=== PATIENT | male | born 1955 | race Caucasian/White ===

== ENCOUNTER 2017-11-29 12:51 | Observation (INO) | payer MEDICAID ==
[~2017-11-29] VITALS: Ht 180.3 cm; Wt 179.8 kg
[2017-11-29 09:15] VITALS: BP 161/83; PULSE 70; RESP 19; TEMP 97.8; O2SAT 95
[~2017-11-29 12:51] MED LIST: ASPI81TA82 PO; ATEN-100 PO; GABA800T PO; LASI80TA PO; LISI-593 PO; PROP20TA3 PO; RIVA20 PO; SERO400T PO; SERT100 PO
[2017-11-29 13:04] VITALS: BP 141/76; PULSE 83; RESP 16; TEMP 98.3; O2SAT 98
[2017-11-29] MEDS ORDERED: SULFAMETHOXAZOLE-TRIMETHOPRIM DS 800-160 MG TAB PO ONE (13:15)
[2017-11-29] MEDS ORDERED: ONDANSETRON ODT 4 MG TAB PO ONE (13:15)
[2017-11-29] MEDS ORDERED: MORPHINE SULFATE 4 MG/ML INJ IV PUSH ONE (13:15)
--- NOTE | 2017-11-29 13:23 | PD ---
HPI Chief Complaint: Edema Time Seen by Provider: 13:09 Travel History International Travel<30 days: No Contact w/Intl Traveler<30days: No Traveled to known affect area: No History of Present Illness HPI The patient is a 62-year-old male who presents to the emergency department via EMS for bilateral lower extremity edema. Per EMS the patient called and stated he had edema for the past 4 weeks the lower extremities, however, upon arrival the patient states he has had increase in edema for the last 3 days. He does note a history of chronic venous insufficiency. The patient states she has mild redness to the left leg, has had increasing swelling with difficulty ambulating. The patient states he is currently homeless and has no family in the local area. The patient's symptoms are moderate. He denies any significant chest pain or shortness of breath. He does note a few intermittent episodes of diarrhea over the last 3 days. He denies any associated fever, chills, or sweats. PFSH Past Medical History Hx Anticoagulant Therapy: Yes (xarelto ) Arthritis: Yes Bipolar Disorder: Yes Anxiety: Yes Depression: Yes Cardiovascular Problems: Yes COPD: Yes Diabetes: Yes Diminished Hearing: Yes (DIMINISHED RIGHT EAR) Deep Vein Thrombosis: Yes Endocrine: Yes Gastrointestinal Disorders: Yes (HERNIA) Genitourinary: No Hypertension: Yes Inguinal Hernia: Yes Musculoskeletal: Yes Neurologic: Yes (NEUROPATHY) Psychiatric: Yes (depression/ptsd) Reproductive: No Respiratory: Yes (COPD ) Integumentary: Yes (CELLULITIS BILATERALLY) Immunizations Current: Yes ?: Not Past Surgical History Abdominal Surgery: Yes (UMBILICAL HERNIA REPAIR) Cholecystectomy: Yes Tonsillectomy: Yes Other Surgery: Yes (LEFT CLAVICAL CALCIUM BUILD UP REMOVAL) Social History Alcohol Use: No Tobacco Use: No (quit 1987) Substance Use: No Allergies-Medications (Allergen,Severity, Reaction): Coded Allergies: Fish Containing Products (Unverified Allergy, Severe, Anaphylaxis, 11/29/17) metformin (Unverified Allergy, Severe, 11/29/17) sts shuts kidneys down pregabalin (Unverified Allergy, Severe, 11/29/17) shuts kidneys down tramadol (Unverified Allergy, Severe, 11/29/17) itch and thoat tightens up *MDRO Multi-Drug Resistant Organism (Verified Adverse Reaction, Unknown, ) MRSA PCR Screen negative 10/12/14. Reported Meds & Prescriptions Reported Meds & Active Scripts Active Bactrim DS (Sulfamethoxazole-Trimethoprim) 800-160 Mg Tab 1 Tab PO BID Review of Systems Except as stated in HPI: all other systems reviewed are Neg General / Constitutional: No: Fever Cardiovascular: No: Chest Pain or Discomfort Respiratory: No: Shortness of Breath Gastrointestinal: Positive: Diarrhea, No: Nausea, Vomiting Musculoskeletal: Positive: Edema, Pain Skin: Positive Other (Chronic venous stasis changes lower extremities with mild erythema of the left lower extremity) Neurologic: No: Dizziness Physical Exam Narrative GENERAL: Awake, alert, pleasant 8-year-old male who appears his stated age is in no acute respiratory distress. SKIN: Focused skin assessment warm/dry. HEAD: Atraumatic. Normocephalic. EYES: No injection or drainage. ENT: No nasal bleeding or discharge. Mucous membranes pink and moist. NECK: Trachea midline. No JVD. CARDIOVASCULAR: Regular rate and rhythm. No murmur appreciated. RESPIRATORY: No accessory muscle use. Clear to auscultation. Breath sounds equal bilaterally. GASTROINTESTINAL: Abdomen soft, obese, large pannus, when the pannus is pulled up right, there is fungal infection noted underlying the skin that is overlying the lower abdomen. MUSCULOSKELETAL: Bilateral lower extremity edema with chronic venous stasis changes noted in bronzing of the skin. Mild erythema of the left lower extremity just. Positive distal pulses. NEUROLOGICAL: Awake and alert. No obvious cranial nerve deficits. Motor grossly within normal limits. Normal speech. Nonfocal. PSYCHIATRIC: Appropriate mood and affect; insight and judgment normal. Data Data Last Documented VS Vital Signs Date Time Temp Pulse Resp B/P (MAP) Pulse Ox O2 Delivery O2 Flow Rate FiO2 11/29/17 13:04 98.3 83 16 141/76 (97) 98 Orders Orders Complete Blood Count With Diff (11/29/17 13:14) Comprehensive Metabolic Panel (11/29/17 13:14) Lactic Acid (11/29/17 13:14) Blood Culture (11/29/17 13:14) Morphine Inj (Morphine Inj) (11/29/17 13:15) Ondansetron Odt (Zofran Odt) (11/29/17 13:15) Sulfamet-Trimeth Ds 800-160 Mg (Bactrim (11/29/17 13:15) Lul Bandage (11/29/17 14:42) Admit Order (Ed Use Only) (11/29/17 18:07) Cefazolin 2 Gm Premix (Ancef 2 Gm Premix (11/29/17 18:15) Labs Laboratory Tests Test 11/29/17 13:30 White Blood Count 7.1 TH/MM3 Red Blood Count 4.38 MIL/MM3 Hemoglobin 13.2 GM/DL Hematocrit 38.0 % Mean Corpuscular Volume 86.8 FL Mean Corpuscular Hemoglobin 30.1 PG Mean Corpuscular Hemoglobin Concent 34.7 % Red Cell Distribution Width 17.2 % Platelet Count 176 TH/MM3 Mean Platelet Volume 8.1 FL Neutrophils (%) (Auto) 72.1 % Lymphocytes (%) (Auto) 17.1 % Monocytes (%) (Auto) 6.6 % Eosinophils (%) (Auto) 3.6 % Basophils (%) (Auto) 0.6 % Neutrophils # (Auto) 5.1 TH/MM3 Lymphocytes # (Auto) 1.2 TH/MM3 Monocytes # (Auto) 0.5 TH/MM3 Eosinophils # (Auto) 0.3 TH/MM3 Basophils # (Auto) 0.0 TH/MM3 CBC Comment DIFF FINAL Differential Comment Blood Urea Nitrogen 17 MG/DL Creatinine 0.87 MG/DL Random Glucose 81 MG/DL Total Protein 7.3 GM/DL Albumin 2.9 GM/DL Calcium Level 8.3 MG/DL Alkaline Phosphatase 72 U/L Aspartate Amino Transf (AST/SGOT) 35 U/L Alanine Aminotransferase (ALT/SGPT) 16 U/L Total Bilirubin 0.4 MG/DL Sodium Level 140 MEQ/L Potassium Level 5.2 MEQ/L Chloride Level 110 MEQ/L Carbon Dioxide Level 22.1 MEQ/L Anion Gap 8 MEQ/L Estimat Glomerular Filtration Rate 90 ML/MIN Lactic Acid Level 1.3 mmol/L MDM Medical Decision Making Medical Screen Exam Complete: Yes Emergency Medical Condition: Yes Medical Record Reviewed: Yes Interpretation(s) Laboratory Tests Test 11/29/17 13:30 White Blood Count 7.1 TH/MM3 Red Blood Count 4.38 MIL/MM3 Hemoglobin 13.2 GM/DL Hematocrit 38.0 % Mean Corpuscular Volume 86.8 FL Mean Corpuscular Hemoglobin 30.1 PG Mean Corpuscular Hemoglobin Concent 34.7 % Red Cell Distribution Width 17.2 % Platelet Count 176 TH/MM3 Mean Platelet Volume 8.1 FL Neutrophils (%) (Auto) 72.1 % Lymphocytes (%) (Auto) 17.1 % Monocytes (%) (Auto) 6.6 % Eosinophils (%) (Auto) 3.6 % Basophils (%) (Auto) 0.6 % Neutrophils # (Auto) 5.1 TH/MM3 Lymphocytes # (Auto) 1.2 TH/MM3 Monocytes # (Auto) 0.5 TH/MM3 Eosinophils # (Auto) 0.3 TH/MM3 Basophils # (Auto) 0.0 TH/MM3 CBC Comment DIFF FINAL Differential Comment Blood Urea Nitrogen 17 MG/DL Creatinine 0.87 MG/DL Random Glucose 81 MG/DL Total Protein 7.3 GM/DL Albumin 2.9 GM/DL Calcium Level 8.3 MG/DL Alkaline Phosphatase 72 U/L Aspartate Amino Transf (AST/SGOT) 35 U/L Alanine Aminotransferase (ALT/SGPT) 16 U/L Total Bilirubin 0.4 MG/DL Sodium Level 140 MEQ/L Potassium Level 5.2 MEQ/L Chloride Level 110 MEQ/L Carbon Dioxide Level 22.1 MEQ/L Anion Gap 8 MEQ/L Estimat Glomerular Filtration Rate 90 ML/MIN Lactic Acid Level 1.3 mmol/L Differential Diagnosis Differential diagnosis includes chronic venous stasis, cellulitis, DVT, peripheral vascular disease, hypoalbuminemia, chronic lymphedema, chronic leg pain. Narrative Course IV was established, labs are drawn and sent, the patient was placed on cardiac telemetry monitoring and continuous pulse oximetry monitoring. The patient was administered morphine and Zofran for his discomfort. The patient was administered Bactrim p.o. the patient's white count and lactic acid are within normal limits. Potassium is slightly elevated at 5.2, however, there was moderate hemolysis. The patient's vitals are stable. The patient's legs will be wrapped with an Lul wrap, patient will be placed on Bactrim. He is advised to elevate his legs and follow-up with a primary physician. The patient was administered his Xarelto for chronic DVT that was diagnosed in September, his last dose of Xarelto was yesterday. The patient had poor ambulatory status even with a wheeled walker and assistance at bedside. Case management evaluated the patient, they called to nursing homes, however, have not heard back. They may not hear back till Friday. Case management recommends 23 hours of observation to the on-call medical service to obtain placement possibly on Friday. The patient is agreeable to this and states he has a Social Security check they can help pay for his stay at the facility. Therefore, the on-call medical team was paged for observation. Physician Communication Physician Communication The on-call medical team was paged for 23-hour observation. I discussed the patient with Dr. Car who agrees with 23 hour observation. Diagnosis Primary Impression: Cellulitis of leg Qualified Codes: L03.116 - Cellulitis of left lower limb Additional Impressions: Venous stasis dermatitis of both lower extremities DVT (deep venous thrombosis) Qualified Codes: I82.509 - Chronic embolism and thrombosis of unspecified deep veins of unspecified lower extremity Admitting Information Admitting Physician Requests: Observation Scripts Sulfamethoxazole-Trimethoprim (Bactrim DS) 800-160 Mg Tab 1 TAB PO BID for Infection, #14 TAB 0 Refills Prov: Eligio Mark MD 11/29/17 Condition: Stable Eligio Mark MD Nov 29, 2017 13:23
[2017-11-29 13:53] LABS: AUTOMATED NEUTROPHIL # 5.1 TH/MM3 (1.8-7.7); BASOPHIL % 0.6 % (0.0-2.0); EOSINOPHIL # 0.3 TH/MM3 (0-0.4); EOSINOPHIL % 3.6 % (0.0-4.0); HEMOGLOBIN 13.2 GM/DL (13.0-17.0); LYMPH % 17.1 % (9.0-44.0); LYMPHOCYTE # 1.2 TH/MM3 (1.0-4.8); MEAN CELL VOLUME 86.8 FL (80.0-100.0); MEAN CORPUSCULAR HEMOGLOBIN 30.1 PG (27.0-34.0); MEAN CORPUSCULAR HGB CONC 34.7 % (32.0-36.0); MEAN PLATELET VOLUME 8.1 FL (7.0-11.0); MONO % 6.6 % (0.0-8.0); MONOCYTE # 0.5 TH/MM3 (0-0.9); NEUT % 72.1 % (16.0-70.0); PLATELET COUNT 176 TH/MM3 (150-450); RED BLOOD COUNT 4.38 MIL/MM3 (4.50-5.90); RED CELL DISTRIBUTION WIDTH 17.2 % (11.6-17.2); WHITE BLOOD COUNT 7.1 TH/MM3 (4.0-11.0)
[2017-11-29 14:21] LABS: ALKALINE PHOSPHATASE 72 U/L (45-117); TOTAL BILIRUBIN ADULT 0.4 MG/DL (0.2-1.0); TOTAL PROTEIN 7.3 GM/DL (6.4-8.2)
[2017-11-29 14:30] LABS: ALBUMIN 2.9 GM/DL (3.4-5.0); ALT (GPT) 16 U/L (12-78); BICARBONATE 22.1 MEQ/L (21.0-32.0); BLOOD UREA NITROGEN 17 MG/DL (7-18); CALCIUM 8.3 MG/DL (8.5-10.1); CHLORIDE 110 MEQ/L (98-107); CREATININE 0.87 MG/DL (0.60-1.30); GLOMERULAR FILTRATION RATE 90 ML/MIN (>89); GLUCOSE,RANDOM 81 MG/DL (74-106); SODIUM (NA) 140 MEQ/L (136-145)
[2017-11-29 14:33] LABS: AST (GOT) 35 U/L (15-37)
[2017-11-29] MEDS ORDERED: BACT800T5 PO (14:42)
[2017-11-29] MEDS ORDERED: ceFAZolin 2 GM PREMIX 50 ML IV ONE (18:15)
--- NOTE | 2017-11-29 18:44 | HHI.HP ---
HPI Service [facility] Primary Care Physician Unknown Admission Diagnosis Lower extremity cellulitis, chronic venous stasis, DVT Diagnoses: Chief Complaint: "I was unable to walk anymore". Travel History International Travel<30 Days: No Contact w/Intl Traveler <30 Da: No Traveled to Known Affected Are: No History of Present Illness This is a 62-year-old male with past medical history as stated below with morbid obesity, diabetes type 2, history of DVT and PE who presented to [facility] emergency department via EMS for bilateral lower extremity edema and inability to ambulate. The patient states that he has had increased edema for the past week, denies any history of chronic venous insufficiency. Patient states that he has had increased redness, swelling, erythema and warmth in bilateral lower extremities but more pronounced in the right lower extremity. The patient states he is currently homeless and has no family in the area. The patient denies chest pain however he does complain of shortness of breath on exertion. Patient has been complaining of intermittent episodes of diarrhea in the last 3 days. States he was prescribed antibiotics for his legs 4 weeks ago and he finished taking antibiotics for which he does not remember the name 2 weeks ago. He denies any fevers, chills, sweats, cough. Review of Systems As per HPI, other systems reviewed by me and negative. Past Family Social History Past Medical History Hypertension Anxiety diabetes ?Asthma vs. COPD History of recurrent DVTs in right leg History of PE in August 2014 Arthritis Chronic lower extremity swelling Past Surgical History Tonsillectomy Clavicle surgery Right knee surgery Hernia surgery Reported Medications Bactrim DS (Sulfamethoxazole-Trimethoprim) 800-160 Mg Tab 1 Tab PO BID Allergies: Coded Allergies: Fish Containing Products (Unverified Allergy, Severe, Anaphylaxis, 11/29/17) metformin (Unverified Allergy, Severe, 11/29/17) sts shuts kidneys down pregabalin (Unverified Allergy, Severe, 11/29/17) shuts kidneys down tramadol (Unverified Allergy, Severe, 11/29/17) itch and thoat tightens up *MDRO Multi-Drug Resistant Organism (Verified Adverse Reaction, Unknown, ) MRSA PCR Screen negative 10/12/14. Active Ordered Medications Current Medications Medications (Trade) Dose Ordered Sig/Comfort Route Start Time Stop Time Status Last Admin Cefazolin Sodium/ Dextrose 50 ml @ 100 mls/hr ONCE ONCE IV 11/29/17 18:15 11/29/17 18:44 Family History Father: multiple medical issues, including DVTs, PEs, VT, CVA, gout. at age 77 Mother: CVA; at age 72 from brain cancer Social History Tobacco: smoked from 2 years from age [age] yo EtOH: only once or twice a year Illicit drugs: occasional marijuana. Smoked yesterday Patient is currently homeless and is on disability Physical Exam Vital Signs Vital Signs Date Time Temp Pulse Resp B/P (MAP) Pulse Ox O2 Delivery O2 Flow Rate FiO2 11/29/17 13:04 98.3 83 16 141/76 (97) 98 Physical Exam GENERAL: This is a well-nourished, well-developed patient, in no apparent distress. morbidly obese. SKIN: No rashes, ecchymoses or lesions. Cool and dry. HEAD: Atraumatic. Normocephalic. No temporal or scalp tenderness. EYES: Pupils equal round and reactive. Extraocular motions intact. No scleral icterus. No injection or drainage. ENT: Nose without bleeding, purulent drainage or septal hematoma. Throat without erythema, tonsillar hypertrophy or exudate. Uvula midline. Airway patent. NECK: Trachea midline. No JVD or lymphadenopathy. Supple, nontender, no meningeal signs. CARDIOVASCULAR: Regular rate and rhythm without murmurs, gallops, or rubs. RESPIRATORY: Clear to auscultation. Breath sounds equal bilaterally. No wheezes , rales, or rhonchi. GASTROINTESTINAL: Abdomen soft, non-tender, nondistended. No hepato-splenomegaly , or palpable masses. No guarding. obese. MUSCULOSKELETAL: Extremities without clubbing, cyanosis, or edema. No joint tenderness, effusion, or edema noted. No calf tenderness. Negative Homans sign bilaterally. NEUROLOGICAL: Awake and alert. Cranial nerves II through XII intact. Motor and sensory grossly within normal limits. Five out of 5 muscle strength in all muscle groups. Normal speech. Laboratory Laboratory Tests Test 11/29/17 13:30 White Blood Count 7.1 Red Blood Count 4.38 Hemoglobin 13.2 Hematocrit 38.0 Mean Corpuscular Volume 86.8 Mean Corpuscular Hemoglobin 30.1 Mean Corpuscular Hemoglobin Concent 34.7 Red Cell Distribution Width 17.2 Platelet Count 176 Mean Platelet Volume 8.1 Neutrophils (%) (Auto) 72.1 Lymphocytes (%) (Auto) 17.1 Monocytes (%) (Auto) 6.6 Eosinophils (%) (Auto) 3.6 Basophils (%) (Auto) 0.6 Neutrophils # (Auto) 5.1 Lymphocytes # (Auto) 1.2 Monocytes # (Auto) 0.5 Eosinophils # (Auto) 0.3 Basophils # (Auto) 0.0 CBC Comment DIFF FINAL Differential Comment Blood Urea Nitrogen 17 Creatinine 0.87 Random Glucose 81 Total Protein 7.3 Albumin 2.9 Calcium Level 8.3 Alkaline Phosphatase 72 Aspartate Amino Transf (AST/SGOT) 35 Alanine Aminotransferase (ALT/SGPT) 16 Total Bilirubin 0.4 Sodium Level 140 Potassium Level 5.2 Chloride Level 110 Carbon Dioxide Level 22.1 Anion Gap 8 Estimat Glomerular Filtration Rate 90 Lactic Acid Level 1.3 Date/Time Source Procedure Growth Status 11/29/17 13:30 Blood Peripheral Aerobic Blood Culture Pending Received 11/29/17 13:30 Blood Peripheral Anaerobic Blood Culture Pending Received Result Diagram: 11/29/17 1330 11/29/17 1330 Caprini VTE Risk Assessment Caprini VTE Risk Assessment: Mod/High Risk (score >= 2) Caprini Risk Assessment Model Point Value = 1 Point Value = 2 Point Value = 3 Point Value = 5 Age 41-60 Minor surgery BMI > 25 kg/m2 Swollen legs Varicose veins or History of unexplained or recurrent spontaneous Oral contraceptives or hormone replacement Sepsis (< 1 month) Serious lung disease, including pneumonia (< 1 month) Abnormal pulmonary function Acute myocardial infarction Congestive heart failure (< 1 month) History of inflammatory bowel disease Medical patient at bed rest Age 61-74 Arthroscopic surgery Major open surgery (> 45 min) Laparoscopic surgery (> 45 min) Malignancy Confined to bed (> 72 hours) Immobilizing plaster cast Central venous access Age >= 75 History of VTE Family history of VTE Factor V Leiden Prothrombin [id number] Lupus anticoagulant Anticardiolipin antibodies Elevated serum homocysteine Heparin-induced thrombocytopenia Other congenital or acquired thrombophilia Stroke (< 1 month) Elective arthroplasty Hip, pelvis, or leg fracture Acute spinal cord injury (< 1 month) Prophylaxis Regimen Total Risk Factor Score Risk Level Prophylaxis Regimen 0-1 Low Early ambulation 2 Moderate Order ONE of the following: *Sequential Compression Device (SCD) *Heparin 5000 units SQ BID 3-4 Higher Order ONE of the following medications: *Heparin 5000 units SQ TID *Enoxaparin/Lovenox 40 mg SQ daily (WT < 150 kg, CrCl > 30 mL/min) *Enoxaparin/Lovenox 30 mg SQ daily (WT < 150 kg, CrCl > 10-29 mL/min) *Enoxaparin/Lovenox 30 mg SQ BID (WT < 150 kg, CrCl > 30 mL/min) AND/OR *Sequential Compression Device (SCD) 5 or more Highest Order ONE of the following medications: *Heparin 5000 units SQ TID (Preferred with Epidurals) *Enoxaparin/Lovenox 40 mg SQ daily (WT < 150 kg, CrCl > 30 mL/min) *Enoxaparin/Lovenox 30 mg SQ daily (WT < 150 kg, CrCl > 10-29 mL/min) *Enoxaparin/Lovenox 30 mg SQ BID (WT < 150 kg, CrCl > 30 mL/min) AND *Sequential Compression Device (SCD) Assessment and Plan Problem List: (1) Cellulitis of both lower extremities ICD Code: L03.115 - Cellulitis of right lower limb; L03.116 - Cellulitis of left lower limb (2) Dyspnea on exertion ICD Code: R06.09 - Dyspnea on exertion Status: Acute (3) Bilateral leg edema ICD Code: R60.0 - Localized edema Assessment and Plan Admit the patient to the medical floor. The patient presents with extensive bilateral lower extremity edema with cellulitis. The patient was given IV cefazolin emergency department. Will continue. We will start the patient on Lasix 40 mg p.o. twice daily. Suspect possibly patient has some degree of congestive heart failure since patient is complaining of dyspnea on exertion and there is worsening bilateral lower extremity edema. Check chest x-ray. Check 2D echocardiogram. Check C. difficile toxin PCR for reported diarrhea. Follow-up blood cultures obtained in the emergency department. Continue chronic anti-correlation with Xarelto for history of DVT and PE. Consult ID for bilateral extremity cellulitis. Lul wraps to bilateral extremities and leg elevation to help improve edema. Start the patient on clonidine as needed for uncontrolled hypertension with systolic blood pressure in the 190s. Code Status Full code Discussed Condition With ED physician, patient. José Luis Wing MD Nov 29, 2017 18:44
[2017-11-29 18:50] VITALS: BP 189/88; PULSE 82; RESP 17; O2SAT 97
[2017-11-29] MEDS ORDERED: XARE20TA PO (18:57)
[2017-11-29] MEDS ORDERED: GABA800T PO (18:57)
[2017-11-29] MEDS ORDERED: HYDR-3583 PO (18:57)
[2017-11-29] MEDS ORDERED: XANA2TAB2 PO (18:57)
[2017-11-29] MEDS ORDERED: SERT-129 PO (18:57)
[2017-11-29] MEDS ORDERED: SODIUM CHLORIDE 0.9% FLUSH 10 ML FLUSH IV FLUSH PRN (19:00)
[2017-11-29] MEDS ORDERED: NALOXONE HCL 0.4 MG/ML AMP IV PUSH PRN (19:00)
[2017-11-29] MEDS ORDERED: ACETAMINOPHEN 325 MG TAB PO PRN (19:00)
[2017-11-29] MEDS ORDERED: ALPRAZolam 1 MG TAB PO PRN (19:00)
[2017-11-29] MEDS ORDERED: cloNIDine HCL 0.1 MG TAB PO ONE (19:30)
[2017-11-29] MEDS ORDERED: cloNIDine HCL 0.1 MG TAB PO PRN (19:30)
--- NOTE | 2017-11-29 20:15 | RADRPT ---
EXAM DATE: 11/29/2017 8:10 PM EDT AGE/SEX: 62 years / Male INDICATIONS: SOB. Swelling bi-laterally to lower extremities. CLINICAL DATA: This is the patient's initial encounter. Patient reports that signs and symptoms have been present for 3 days and indicates a pain score of 2/10. MEDICAL/SURGICAL HISTORY: None. None. [place] [facility] [place]. . FINDINGS: Mild basilar density most characteristic of atelectasis. No effusion. No pneumothorax. Heart size enl arged. CONCLUSION: Mild basilar atelectasis. Cardiomegaly. Electronically signed by: Rancho Weiss MD 11/29/2017 8:14 PM EDT
[2017-11-29] MEDS: SODIUM CHLORIDE 0.9% FLUSH 10 ML FLUSH IV FLUSH SCH (20:19)
[2017-11-29 20:21] VITALS: BP 162/87; PULSE 77; RESP 20; O2SAT 95
[2017-11-29 21:11] LABS: BILIRUBIN, URINE NEG (NEG); BLOOD, URINE NEG (NEG); GLUCOSE,URINE NEG (NEG); KETONE, URINE NEG (NEG); MUCUS URINE MOD /lpf (OCC); NITRITE,URINE NEG (NEG); PH, URINE 6.5 (5.0-8.5); SQUAMOUS EPITHELIAL CELL URINE <1 /hpf (0-5); URINE COLOR YELLOW (YELLW/STRAW); URINE LEUKOCYTE ESTERASE NEG (NEG)
[2017-11-29] MEDS: ACETAMINOPHEN/HYDROcodone 325 MG/10 MG TAB PO PRN (22:35)
[2017-11-30] VITALS (7 sets, daily range): BP systolic 116–167; BP diastolic 57–88; PULSE 66–77; RESP 17–20; TEMP 97.8–98.8; O2SAT 93–95
[2017-11-30 06:13] LABS: AUTOMATED NEUTROPHIL # 3.3 TH/MM3 (1.8-7.7); BASOPHIL % 0.6 % (0.0-2.0); EOSINOPHIL # 0.4 TH/MM3 (0-0.4); EOSINOPHIL % 6.1 % (0.0-4.0); HEMATOCRIT 37.4 % (39.0-51.0); HEMOGLOBIN 12.3 GM/DL (13.0-17.0); LYMPH % 28.4 % (9.0-44.0); LYMPHOCYTE # 1.7 TH/MM3 (1.0-4.8); MEAN CELL VOLUME 87.7 FL (80.0-100.0); MEAN CORPUSCULAR HEMOGLOBIN 28.8 PG (27.0-34.0); MEAN CORPUSCULAR HGB CONC 32.9 % (32.0-36.0); MEAN PLATELET VOLUME 7.7 FL (7.0-11.0); MONO % 8.6 % (0.0-8.0); MONOCYTE # 0.5 TH/MM3 (0-0.9); NEUT % 56.3 % (16.0-70.0); PLATELET COUNT 172 TH/MM3 (150-450); RED BLOOD COUNT 4.27 MIL/MM3 (4.50-5.90); RED CELL DISTRIBUTION WIDTH 17.6 % (11.6-17.2); WHITE BLOOD COUNT 5.8 TH/MM3 (4.0-11.0)
[2017-11-30 06:36] LABS: ALBUMIN 2.7 GM/DL (3.4-5.0); AST (GOT) 13 U/L (15-37); BICARBONATE 26.3 MEQ/L (21.0-32.0); BLOOD UREA NITROGEN 14 MG/DL (7-18); CALCIUM 8.2 MG/DL (8.5-10.1); CHLORIDE 109 MEQ/L (98-107); CREATININE 0.97 MG/DL (0.60-1.30); GLOMERULAR FILTRATION RATE 79 ML/MIN (>89); GLUCOSE,RANDOM 71 MG/DL (74-106); SODIUM (NA) 142 MEQ/L (136-145)
[2017-11-30 06:37] LABS: ALT (GPT) 14 U/L (12-78)
[2017-11-30 06:39] LABS: ALKALINE PHOSPHATASE 65 U/L (45-117); TOTAL BILIRUBIN ADULT 0.5 MG/DL (0.2-1.0); TOTAL PROTEIN 6.5 GM/DL (6.4-8.2)
[2017-11-30] MEDS: RIVAROXABAN 20 MG TAB PO SCH (09:02)
[2017-11-30] MEDS: FUROSEMIDE 40 MG TAB PO SCH ×2 (09:02→17:06)
[2017-11-30] MEDS: SODIUM CHLORIDE 0.9% FLUSH 10 ML FLUSH IV FLUSH SCH ×2 (09:02→21:03)
[2017-11-30] MEDS: GABAPENTIN 400 MG CAP PO SCH ×3 (09:02→17:06)
[2017-11-30] MEDS: SERTRALINE HCL 100 MG TAB PO SCH (09:02)
[2017-11-30] MEDS: ACETAMINOPHEN/HYDROcodone 325 MG/10 MG TAB PO PRN ×3 (09:04→21:03)
--- NOTE | 2017-11-30 10:43 | HHI.PR ---
Subjective Remarks Follow-up chronic venous stasis versus bilateral lower extremity cellulitis/ dyspnea November 30, 2017-patient seen and examined, reports some improvement of diarrheal episodes since admission. Denies any significant shortness of breath. Currently afebrile. Objective Vitals Vital Signs Date Time Temp Pulse Resp B/P (MAP) Pulse Ox O2 Delivery O2 Flow Rate FiO2 11/30/17 08:00 Room Air 11/30/17 08:00 98.0 71 20 163/76 (105) 93 11/30/17 05:30 156/88 (110) 11/30/17 04:00 97.8 68 19 167/88 (114) 94 11/30/17 01:12 18 11/30/17 00:00 97.9 77 19 130/70 (90) 93 11/29/17 20:21 77 20 162/87 (112) 95 Room Air 11/29/17 18:50 82 17 189/88 (121) 97 Room Air 11/29/17 13:04 98.3 83 16 141/76 (97) 98 I/O 11/29/17 11/29/17 11/29/17 11/30/17 11/30/17 11/30/17 07:00 15:00 23:00 07:00 15:00 23:00 Intake Total 500 ml Output Total 1000 ml Balance -500 ml Intake Oral 400 ml IV Total 100 ml Output Urine Total 1000 ml # Bowel Movements 3 Result Diagram: 11/30/17 0508 11/30/17 0508 Imaging Last Impressions Chest X-Ray 11/29/17 0000 Signed Impressions: CONCLUSION: Mild basilar atelectasis. Cardiomegaly. Objective Remarks GENERAL: NAD SKIN: Warm and dry. HEAD: Normocephalic. EYES: No scleral icterus. No injection or drainage. NECK: Supple, trachea midline. No JVD or lymphadenopathy. CARDIOVASCULAR: Regular rate and rhythm without murmurs, gallops, or rubs. RESPIRATORY: Breath sounds equal bilaterally. No accessory muscle use. GASTROINTESTINAL: Abdomen soft, non-tender, nondistended. MUSCULOSKELETAL: No cyanosis; chronic venous stasis with some erythema BACK: Nontender without obvious deformity. No CVA tenderness. A/P Problem List: (1) Cellulitis of both lower extremities ICD Code: L03.115 - Cellulitis of right lower limb; L03.116 - Cellulitis of left lower limb (2) Dyspnea on exertion ICD Code: R06.09 - Dyspnea on exertion Status: Acute (3) Bilateral leg edema ICD Code: R60.0 - Localized edema Assessment and Plan 72-year-old man with Chronic venous stasis versus cellulitis of both lower extremities Appears to be likely chronic venous stasis which can mimic itself for cellulitis However currently on IV antibiotic pending evaluation from ID Continue Lul wrap, elevate lower extremities Dyspnea Chest x-ray with evidence of cardiomegaly 2D echo pending and check BNP Chronic history of DVT and PE on chronic OAC Continue with Xarelto Questionable history of CHF Currently on Lasix twice daily, ordered by admitting doctor 2D echo pending and check BNP Benign labile hypertension Start Procardia XL Diarrhea Improving C. difficile PCR negative Treat with antidiarrhea motility agents DVT prophylaxis: Malcolm Kinney MD Nov 30, 2017 10:43
[2017-11-30] MEDS ORDERED: DIPHENOXYLATE/ATROPINE 2.5 MG/0.025 MG TAB PO PRN (11:00)
[2017-11-30] MEDS: NIFEdipine 60 MG SUSTAINED RELEASE TAB PO SCH (12:26)
--- NOTE | 2017-11-30 20:26 | PD.ID.CON ---
History of Present Illness Service ID Consult Requested By Dr Car Reason for Consult BLE cellulitis Primary Care Physician Unknown Diagnoses: History of Present Illness 62 yo morbidly obese male with chronic venostasis and prior episodes of BLE cellulitis presents with few days of worserning edema, erythema of BLE On presentation no fever, no leukocytosis Started on Cefazolin Blood clx are negative He also c/o diarrhea on presentation, whic resolved C.diff test negative Review of Systems Except as stated in HPI: all other systems reviewed are Neg Past Family Social History Allergies: Coded Allergies: Fish Containing Products (Unverified Allergy, Severe, Anaphylaxis, 11/29/17) metformin (Unverified Allergy, Severe, 11/29/17) sts shuts kidneys down pregabalin (Unverified Allergy, Severe, 11/29/17) shuts kidneys down tramadol (Unverified Allergy, Severe, 11/29/17) itch and thoat tightens up *MDRO Multi-Drug Resistant Organism (Verified Adverse Reaction, Unknown, ) MRSA PCR Screen negative 10/12/14. Past Medical History Hypertension Anxiety diabetes ?Asthma vs. 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 at age 77 Mother: CVA; at age 72 from brain cancer Social History Tobacco: smoked x 2 years from age [age] yo EtOH: only once or twice a year Illicit drugs: occasional marijuana. Smoked yesterday Patient is currently homeless and is on disability Physical Exam Vital Signs Vital Signs Date Time Temp Pulse Resp B/P (MAP) Pulse Ox O2 Delivery O2 Flow Rate FiO2 11/30/17 16:00 97.8 71 20 154/72 (99) 95 11/30/17 16:00 Room Air 11/30/17 12:00 Room Air 11/30/17 12:00 97.8 66 20 147/79 (101) 94 11/30/17 08:00 Room Air 11/30/17 08:00 98.0 71 20 163/76 (105) 93 11/30/17 05:30 156/88 (110) 11/30/17 04:00 97.8 68 19 167/88 (114) 94 11/30/17 01:12 18 11/30/17 00:00 97.9 77 19 130/70 (90) 93 11/29/17 20:21 77 20 162/87 (112) 95 Room Air Physical Exam CONSTITUTIONAL/GENERAL: This is a morbidly obese patient, in no apparent distress. TUBES/LINES/DRAINS: SKIN: No jaundice, rashes, or lesions. Ecchymoses on upper extremities. No wounds seen anteriorly. Skin temperature appropriate. Not diaphoretic. HEAD: Atraumatic. Normocephalic. EYES: Pupils equal and round and reactive. Extraocular motions intact. No scleral icterus. No injection or drainage. Fundi not examined. ENT: Hearing grossly normal. Nose without bleeding or purulent drainage. Throat without visible erythema, exudates, masses, or lesions. Poor dentition NECK: Trachea midline. Supple, nontender. CARDIOVASCULAR: Regular rate and rhythm without murmurs, gallops, or rubs. No JVD. Peripheral pulses symmetric. RESPIRATORY/CHEST: Symmetric, unlabored respirations. Clear to auscultation. Breath sounds equal bilaterally. No wheezes, rales, or rhonchi. GASTROINTESTINAL: Abdomen soft, non-tender, nondistended. No hepato-splenomegaly , or palpable masses. No guarding. Bowel sounds present. GENITOURINARY: Without palpable bladder distension. Tejada catheter in place. MUSCULOSKELETAL: Extremities without clubbing, cyanosis, Massibve 3+ edema., though tree bark butler present cw diminishiunfg swelling + erythema + chronic hyperpigmentation and hyperkeratosis No joint tenderness or effusion noted. No calf tenderness. No mottling or clubbing. LYMPHATICS: No palpable cervical or supraclavicular adenopathy. NEUROLOGICAL: Awake and alert. Motor and sensory grossly within normal limits. Follows commands. Clear speech . Moves all extremities. PSYCHIATRIC: No obvious anxiety/depression. no apparent hallucinations or other psychotic thought process. Laboratory Laboratory Tests Test 11/29/17 20:32 11/29/17 23:20 11/30/17 05:08 Urine Color YELLOW Urine Turbidity CLEAR Urine pH 6.5 Urine Specific [place] 1.028 Urine Protein TRACE Urine Glucose (UA) NEG Urine Ketones NEG Urine Occult Blood NEG Urine Nitrite NEG Urine Bilirubin NEG Urine Urobilinogen LESS THAN 2.0 Urine Leukocyte Esterase NEG Urine RBC LESS THAN 1 Urine WBC 2 Urine Squamous Epithelial Cells <1 Urine Mucus MOD Microscopic Urinalysis Comment CULT NOT INDICATED Stool C. difficile Toxin (PCR) NEGATIVE Stl C. difficile Toxin Epiderm 027 PRESUMPTIVE NEGATIVE White Blood Count 5.8 Red Blood Count 4.27 Hemoglobin 12.3 Hematocrit 37.4 Mean Corpuscular Volume 87.7 Mean Corpuscular Hemoglobin 28.8 Mean Corpuscular Hemoglobin Concent 32.9 Red Cell Distribution Width 17.6 Platelet Count 172 Mean Platelet Volume 7.7 Neutrophils (%) (Auto) 56.3 Lymphocytes (%) (Auto) 28.4 Monocytes (%) (Auto) 8.6 Eosinophils (%) (Auto) 6.1 Basophils (%) (Auto) 0.6 Neutrophils # (Auto) 3.3 Lymphocytes # (Auto) 1.7 Monocytes # (Auto) 0.5 Eosinophils # (Auto) 0.4 Basophils # (Auto) 0.0 CBC Comment DIFF FINAL Differential Comment Blood Urea Nitrogen 14 Creatinine 0.97 Random Glucose 71 Total Protein 6.5 Albumin 2.7 Calcium Level 8.2 Alkaline Phosphatase 65 Aspartate Amino Transf (AST/SGOT) 13 Alanine Aminotransferase (ALT/SGPT) 14 Total Bilirubin 0.5 Sodium Level 142 Potassium Level 4.1 Chloride Level 109 Carbon Dioxide Level 26.3 Anion Gap 7 Estimat Glomerular Filtration Rate 79 B-Type Natriuretic Peptide 120 Date/Time Source Procedure Growth Status 11/29/17 13:30 Blood Peripheral Aerobic Blood Culture - Preliminary NO GROWTH IN 1 DAY Resulted 11/29/17 13:30 Blood Peripheral Anaerobic Blood Culture - Preliminary NO GROWTH IN 1 DAY Resulted Result Diagram: 11/30/17 0508 11/30/17 0508 Imaging Last Impressions Chest X-Ray 11/29/17 0000 Signed Impressions: CONCLUSION: Mild basilar atelectasis. Cardiomegaly. Assessment and Plan Assessment and Plan Morbid obesity Chronic venostasis BLE cellulitis - change Ancef to 2 gm q 8 Keep BLE elevated Anticipate transition to oral abx once get Rachel Rolle MD Nov 30, 2017 20:26
[2017-11-30] MEDS: LACTOBACILLUS ACIDOPHILUS TAB PO SCH (21:02)
[2017-12-01] VITALS: BP 130/70; PULSE 67; RESP 19; TEMP 98.1; O2SAT 94
[2017-12-01 04:00] VITALS: BP 118/78; PULSE 71; RESP 19; TEMP 98.3; O2SAT 95
[2017-12-01 08:00] VITALS: BP 144/77; PULSE 74; RESP 18; TEMP 99.4; O2SAT 93
[2017-12-01] MEDS: NIFEdipine 60 MG SUSTAINED RELEASE TAB PO SCH (09:04)
[2017-12-01] MEDS: SERTRALINE HCL 100 MG TAB PO SCH (09:04)
[2017-12-01] MEDS: ACETAMINOPHEN/HYDROcodone 325 MG/10 MG TAB PO PRN ×2 (09:04→15:17)
[2017-12-01] MEDS: LACTOBACILLUS ACIDOPHILUS TAB PO SCH (09:04)
[2017-12-01] MEDS: FUROSEMIDE 40 MG TAB PO SCH ×2 (09:05→17:35)
[2017-12-01] MEDS: RIVAROXABAN 20 MG TAB PO SCH (09:05)
[2017-12-01] MEDS: GABAPENTIN 400 MG CAP PO SCH ×3 (09:05→17:34)
[2017-12-01] MEDS: SODIUM CHLORIDE 0.9% FLUSH 10 ML FLUSH IV FLUSH SCH (09:18)
[2017-12-01] MEDS ORDERED: LACT PO (10:52)
--- NOTE | 2017-12-01 10:54 | HHI.DS ---
Discharge Summary Admission Date Nov 29, 2017 at 19:02 Discharge Date: Dec 01, 2017 Admitting Diagnosis Lower extremity cellulitis, chronic venous stasis, DVT (1) Cellulitis of both lower extremities ICD Code: L03.115 - Cellulitis of right lower limb; L03.116 - Cellulitis of left lower limb (2) Dyspnea on exertion ICD Code: R06.09 - Dyspnea on exertion Status: Acute (3) Bilateral leg edema ICD Code: R60.0 - Localized edema Procedures none Brief History - From Admission This is a 62-year-old male with past medical history as stated below with morbid obesity, diabetes type 2, history of DVT and PE who presented to [facility] emergency department via EMS for bilateral lower extremity edema and inability to ambulate. The patient states that he has had increased edema for the past week, denies any history of chronic venous insufficiency. Patient states that he has had increased redness, swelling, erythema and warmth in bilateral lower extremities but more pronounced in the right lower extremity. The patient states he is currently homeless and has no family in the area. The patient denies chest pain however he does complain of shortness of breath on exertion. Patient has been complaining of intermittent episodes of diarrhea in the last 3 days. States he was prescribed antibiotics for his legs 4 weeks ago and he finished taking antibiotics for which he does not remember the name 2 weeks ago. He denies any fevers, chills, sweats, cough. CBC/BMP: 11/30/17 0508 11/30/17 0508 Significant Findings Laboratory Tests Test 11/29/17 13:30 11/29/17 20:32 11/29/17 23:20 11/30/17 05:08 Red Blood Count 4.38 MIL/MM3 (4.50-5.90) 4.27 MIL/MM3 (4.50-5.90) Hematocrit 38.0 % (39.0-51.0) 37.4 % (39.0-51.0) Neutrophils (%) (Auto) 72.1 % (16.0-70.0) Albumin 2.9 GM/DL (3.4-5.0) 2.7 GM/DL (3.4-5.0) Calcium Level 8.3 MG/DL (8.5-10.1) 8.2 MG/DL (8.5-10.1) Potassium Level 5.2 MEQ/L (3.5-5.1) Chloride Level 110 MEQ/L (98-107) 109 MEQ/L (98-107) Urine Mucus MOD /lpf (OCC) Hemoglobin 12.3 GM/DL (13.0-17.0) Red Cell Distribution Width 17.6 % (11.6-17.2) Monocytes (%) (Auto) 8.6 % (0.0-8.0) Eosinophils (%) (Auto) 6.1 % (0.0-4.0) Random Glucose 71 MG/DL (74-106) Aspartate Amino Transf (AST/SGOT) 13 U/L (15-37) Estimat Glomerular Filtration Rate 79 ML/MIN (>89) B-Type Natriuretic Peptide 120 PG/ML (0-100) Imaging Last Impressions Chest X-Ray 11/29/17 0000 Signed Impressions: CONCLUSION: Mild basilar atelectasis. Cardiomegaly. PE at Discharge GENERAL: NAD SKIN: Warm and dry. HEAD: Normocephalic. EYES: No scleral icterus. No injection or drainage. NECK: Supple, trachea midline. No JVD or lymphadenopathy. CARDIOVASCULAR: Regular rate and rhythm without murmurs, gallops, or rubs. RESPIRATORY: Breath sounds equal bilaterally. No accessory muscle use. GASTROINTESTINAL: Abdomen soft, non-tender, nondistended. MUSCULOSKELETAL: No cyanosis; chronic venous stasis with some erythema BACK: Nontender without obvious deformity. No CVA tenderness. Hospital Course 72-year-old man with Chronic venous stasis versus cellulitis of both lower extremities Appears to be likely chronic venous stasis which can mimic itself for cellulitis However currently on IV antibiotic, appreciate ID recommendations. Plan to change to PO abx and poss DC Continue Lul wrap, elevate lower extremities Dyspnea Chest x-ray with evidence of cardiomegaly 2D echo pending and check BNP Chronic history of DVT and PE on chronic OAC Continue with Xarelto Questionable history of CHF Currently on Lasix twice daily, ordered by admitting doctor 2D echo pending and check BNP Benign labile hypertension Start Procardia XL Diarrhea - Improving C. difficile PCR negative Treat with antidiarrhea motility agents DVT prophylaxis: Xarelto Discussed with the patient, nurse Cleared by ID recommends keflex 500 g po QID for 10 days Patient improving. DC home in stable condition to follow up as [facility] PCP and consultants. Pt Condition on Discharge: Stable Discharge Disposition: Discharge Home Discharge Time: > 30 minutes Discharge Instructions DIET: Follow Instructions for: Heart Healthy Diet, Diabetic Diet Activities you can perform: Regular-No Restrictions Follow up Referrals: PCP Follow-up - 2-3 Days PCP Follow-up New Medications: Cephalexin (Keflex) 500 Mg Cap 500 MG PO Q6H for Infection for 10 Days, #40 CAP 0 Refills Lactobacillus Acidophilus (Acidophilus/l-Sporogenes) 35 Million Cell-25 Million Cell Tab 1 TAB PO Q12HR for Nutritional Supplement, #30 TAB Continued Medications: Alprazolam (Xanax) 2 Mg Tab 2 MG PO BID PRN for ANXIETY, TAB 0 Refills Gabapentin (Gabapentin) 800 Mg Tab 800 MG PO TID, #90 TAB 0 Refills Hydrocodone-Acetaminophen (Hydrocodone-Acetaminophen) 10-325 mg Tab 1 TAB PO Q6H PRN for PAIN, #15 TAB 0 Refills (This prescription has been renewed ) Rivaroxaban (Xarelto) 20 Mg Tab 20 MG PO DAILY for Blood Clot Prevention, TAB 0 Refills Sertraline (Sertraline) 100 Mg Tab 100 MG PO DAILY, #30 TAB 0 Refills Addie Hadley MD Dec 01, 2017 10:54
--- NOTE | 2017-12-01 11:27 | HHI.PR ---
Subjective Remarks Follow-up chronic venous stasis versus bilateral lower extremity cellulitis/ dyspnea November 30, 2017-patient seen and examined, reports some improvement of diarrheal episodes since admission. Denies any significant shortness of breath. Currently afebrile. December 01, 2017: No fever or chills overnight. Diarrhea however is improving. No nausea or vomiting. Eating okay. Wounds are healing fairly well. Objective Vitals Vital Signs Date Time Temp Pulse Resp B/P (MAP) Pulse Ox O2 Delivery O2 Flow Rate FiO2 12/01/17 08:00 99.4 74 18 144/77 (99) 93 12/01/17 04:00 98.3 71 19 118/78 (91) 95 12/01/17 04:00 Room Air 12/01/17 00:00 Room Air 12/01/17 00:00 98.1 67 19 130/70 (90) 94 11/30/17 23:42 18 11/30/17 21:00 Room Air 11/30/17 20:00 98.8 73 17 116/57 (76) 94 11/30/17 16:00 97.8 71 20 154/72 (99) 95 11/30/17 16:00 Room Air 11/30/17 12:00 Room Air 11/30/17 12:00 97.8 66 20 147/79 (101) 94 I/O 11/30/17 11/30/17 11/30/17 12/01/17 12/01/17 12/01/17 06:59 14:59 22:59 06:59 14:59 22:59 Intake Total 500 ml 860 ml 340 ml Output Total 1000 ml 700 ml 2300 ml Balance -500 ml 160 ml -1960 ml Intake Oral 400 ml 860 ml 240 ml IV Total 100 ml 100 ml Output Urine Total 1000 ml 700 ml 2300 ml # Bowel Movements 3 0 0 Result Diagram: 11/30/17 0508 11/30/17 0508 Imaging Last Impressions Chest X-Ray 11/29/17 0000 Signed Impressions: CONCLUSION: Mild basilar atelectasis. Cardiomegaly. Objective Remarks GENERAL: 62 yo male, appears in NAD CARDIOVASCULAR: Regular rate and rhythm without murmurs, gallops, or rubs. RESPIRATORY: Breath sounds equal bilaterally. No accessory muscle use. GASTROINTESTINAL: Abdomen soft, non-tender, nondistended. MUSCULOSKELETAL: No cyanosis; chronic venous stasis with some erythema BACK: Nontender without obvious deformity. No CVA tenderness. A/P Problem List: (1) Cellulitis of both lower extremities ICD Code: L03.115 - Cellulitis of right lower limb; L03.116 - Cellulitis of left lower limb (2) Dyspnea on exertion ICD Code: R06.09 - Dyspnea on exertion Status: Acute (3) Bilateral leg edema ICD Code: R60.0 - Localized edema Assessment and Plan 72-year-old man with Chronic venous stasis versus cellulitis of both lower extremities Appears to be likely chronic venous stasis which can mimic itself for cellulitis However currently on IV antibiotic, appreciate ID recommendations. Plan to change to PO abx and poss DC Continue Lul wrap, elevate lower extremities Dyspnea Chest x-ray with evidence of cardiomegaly 2D echo pending and check BNP Chronic history of DVT and PE on chronic OAC Continue with Xarelto Questionable history of CHF Currently on Lasix twice daily, ordered by admitting doctor 2D echo pending and check BNP Benign labile hypertension Start Procardia XL Diarrhea - Improving C. difficile PCR negative Treat with antidiarrhea motility agents DVT prophylaxis: Xarelto Discussed with the patient, nurse Plan to change to PO abx and poss DC, awaiting final recs for DC from ID. . Addie Hadley MD Dec 01, 2017 11:27
[2017-12-01 12:00] VITALS: BP 122/87; PULSE 71; RESP 18; TEMP 98; O2SAT 95
[2017-12-01] MEDS ORDERED: HYDR-3583 PO (15:29)
[2017-12-01 16:02] VITALS: BP 130/80; PULSE 77; RESP 18; TEMP 98; O2SAT 95
--- NOTE | 2017-12-01 16:46 | HHI.IDPN ---
Subjective Subjective Remarks co BLE pain no fever Antibiotics ancef Allergies: Coded Allergies: Fish Containing Products (Unverified Allergy, Severe, Anaphylaxis, 11/29/17) metformin (Unverified Allergy, Severe, 11/29/17) sts shuts kidneys down pregabalin (Unverified Allergy, Severe, 11/29/17) shuts kidneys down tramadol (Unverified Allergy, Severe, 11/29/17) itch and thoat tightens up *MDRO Multi-Drug Resistant Organism (Verified Adverse Reaction, Unknown, ) MRSA PCR Screen negative 10/12/14. Objective . Vital Signs Date Time Temp Pulse Resp B/P (MAP) Pulse Ox O2 Delivery O2 Flow Rate FiO2 12/01/17 12:00 98.0 71 18 122/87 (99) 95 12/01/17 08:00 99.4 74 18 144/77 (99) 93 12/01/17 07:00 Room Air 12/01/17 04:00 98.3 71 19 118/78 (91) 95 12/01/17 04:00 Room Air 12/01/17 00:00 Room Air 12/01/17 00:00 98.1 67 19 130/70 (90) 94 11/30/17 23:42 18 11/30/17 21:00 Room Air 11/30/17 20:00 98.8 73 17 116/57 (76) 94 . Laboratory Tests Test 11/30/17 05:08 White Blood Count 5.8 TH/MM3 Red Blood Count 4.27 MIL/MM3 Hemoglobin 12.3 GM/DL Hematocrit 37.4 % Mean Corpuscular Volume 87.7 FL Mean Corpuscular Hemoglobin 28.8 PG Mean Corpuscular Hemoglobin Concent 32.9 % Red Cell Distribution Width 17.6 % Platelet Count 172 TH/MM3 Mean Platelet Volume 7.7 FL Neutrophils (%) (Auto) 56.3 % Lymphocytes (%) (Auto) 28.4 % Monocytes (%) (Auto) 8.6 % Eosinophils (%) (Auto) 6.1 % Basophils (%) (Auto) 0.6 % Neutrophils # (Auto) 3.3 TH/MM3 Lymphocytes # (Auto) 1.7 TH/MM3 Monocytes # (Auto) 0.5 TH/MM3 Eosinophils # (Auto) 0.4 TH/MM3 Basophils # (Auto) 0.0 TH/MM3 CBC Comment DIFF FINAL Differential Comment Laboratory Tests Test 11/30/17 05:08 Blood Urea Nitrogen 14 MG/DL Creatinine 0.97 MG/DL Random Glucose 71 MG/DL Total Protein 6.5 GM/DL Albumin 2.7 GM/DL Calcium Level 8.2 MG/DL Alkaline Phosphatase 65 U/L Aspartate Amino Transf (AST/SGOT) 13 U/L Alanine Aminotransferase (ALT/SGPT) 14 U/L Total Bilirubin 0.5 MG/DL Sodium Level 142 MEQ/L Potassium Level 4.1 MEQ/L Chloride Level 109 MEQ/L Carbon Dioxide Level 26.3 MEQ/L Anion Gap 7 MEQ/L Estimat Glomerular Filtration Rate 79 ML/MIN B-Type Natriuretic Peptide 120 PG/ML Microbiology Date/Time Source Procedure Growth Status 11/29/17 13:30 Blood Peripheral Aerobic Blood Culture - Preliminary NO GROWTH IN 2 DAYS Resulted 11/29/17 13:30 Blood Peripheral Anaerobic Blood Culture - Preliminary NO GROWTH IN 2 DAYS Resulted 11/29/17 13:20 Blood Peripheral Aerobic Blood Culture - Preliminary NO GROWTH IN 2 DAYS Resulted 11/29/17 13:20 Blood Peripheral Anaerobic Blood Culture - Preliminary NO GROWTH IN 2 DAYS Resulted Imaging Last Impressions Chest X-Ray 11/29/17 0000 Signed Impressions: CONCLUSION: Mild basilar atelectasis. Cardiomegaly. Physical Exam CONSTITUTIONAL/GENERAL: This is a morbidly obese patient, in no apparent distress. TUBES/LINES/DRAINS: SKIN: No jaundice, rashes, or lesions. Ecchymoses on upper extremities. No wounds seen anteriorly. Skin temperature appropriate. Not diaphoretic. CARDIOVASCULAR: Regular rate and rhythm without murmurs, gallops, or rubs. No JVD. Peripheral pulses symmetric. RESPIRATORY/CHEST: Symmetric, unlabored respirations. Clear to auscultation. Breath sounds equal bilaterally. No wheezes, rales, or rhonchi. GASTROINTESTINAL: Abdomen soft, non-tender, nondistended. No hepato-splenomegaly , or palpable masses. No guarding. Bowel sounds present. MUSCULOSKELETAL: Extremities without clubbing, cyanosis, 2+ edema., though tree bark butler present cw diminishiunfg swelling erythema appears less prominent + chronic hyperpigmentation and hyperkeratosis No joint tenderness or effusion noted. No calf tenderness. No mottling or clubbing. NEUROLOGICAL: Awake and alert. Motor and sensory grossly within normal limits. Follows commands. Clear speech . Moves all extremities. PSYCHIATRIC: No obvious anxiety/depression. no apparent hallucinations or other psychotic thought process. Assessment & Plan Remarks Morbid obesity Chronic venostasis BLE cellulitis - change Ancef to Keflex 500 mg PO QID to complete 10 more days Keep BLE elevated OK to dc Rachel Lugo MD Dec 01, 2017 16:46
[2017-12-01] MEDS ORDERED: CEPH-460 PO (17:06)
--- NOTE | 2017-12-01 17:23 | ECHRPT ---
Indication: SOB CONCLUSIONS Normal left ventricular size. Wall thickness is normal. The left ventricular systolic function is low normal with an estimated ejection fraction in the rang e of 50%. Slight aortic valve sclerosis is present. Trace aortic valve regurgitation. Trivial pulmonary valve regurgitation. BP: / HR: Rhythm: MEASUREMENTS (Male / Female) Normal Values Technical Quality: 2D ECHO LV Diastolic Diameter PLAX 5.7 cm 4.2 - 5.9 / 3.9 - 5.3 cm LV Systolic Diameter PLAX 4.1 cm IVS Diastolic Thickness 1.2 cm 0.6 - 1.0 / 0.6 - 0.9 cm LVPW Diastolic Thickness 0.9 cm 0.6 - 1.0 / 0.6 - 0.9 cm LV Relative Wall Thickness 0.4 RV Internal Dim ED PLAX 2.3 cm LA Systolic Diameter LX 4.0 cm 3.0 - 4.0 / 2.7 - 3.8 cm DOPPLER Mitral E Point Velocity 88.4 cm/s Mitral A Point Velocity 106.0 cm/s Mitral E to A Ratio 0.8 TR Peak Velocity 243.0 cm/s TR Peak Gradient 23.6 mmHg Right Atrial Pressure 5.0 mmHg Pulmonary Artery Systolic Pressu 28.6 mmHg Right Ventricular Systolic Press 28.6 mmHg FINDINGS LEFT VENTRICLE Normal left ventricular size. Wall thickness is normal. The left ventricular systolic function is low normal with an estimated ejection fraction in the rang e of 50%. RIGHT VENTRICLE Normal right ventricular size and systolic function. LEFT ATRIUM The left atrial size is normal. RIGHT ATRIUM The right atrial size is normal. ATRIAL SEPTUM Normal atrial septal thickness without atrial level shunting by limited color doppler interrogation. AORTA The aortic root and proximal ascending aorta are normal in size on limited imaging. MITRAL VALVE Structurally normal mitral valve. AORTIC VALVE Slight aortic valve sclerosis is present. Trace aortic valve regurgitation. TRICUSPID VALVE Structurally normal tricuspid valve. No tricuspid valve stenosis or regurgitation. PULMONARY VALVE Trivial pulmonary valve regurgitation. VESSELS The inferior vena cava is normal in size. PERICARDIUM No pericardial effusion. Chau Rowland MD (Electronically Signed) Final Date:01 December 2017 17:21
[2017-12-01] MEDS ORDERED: CEPHALEXIN MONOHYDRATE 500 MG CAP PO SCH (18:00)
== END 2017-12-01 21:15 | disposition home or self-care (01) ==
LOC: NEPE 12:51 → NEDA 18:10 → INTOOBSV 19:02 → OBSVTOIN 19:02 → N04B 20:39
PROVIDERS: ADMIT Hospitalist; ATTEND Hospitalist
DX: L03.115 Cellulitis of right lower limb (principal); L03.116 Cellulitis of left lower limb; R06.09 Other forms of dyspnea; R60.0 Localized edema; R19.7 Diarrhea, unspecified; I10 Essential (primary) hypertension; E11.9 Type 2 diabetes mellitus without complications; I87.8 Other specified disorders of veins; J98.11 Atelectasis; F41.9 Anxiety disorder, unspecified; M19.90 Unspecified osteoarthritis, unspecified site; E66.01 Morbid (severe) obesity due to excess calories; F12.90 Cannabis use, unspecified, uncomplicated; Z86.718 Personal history of other venous thrombosis and embolism; Z86.711 Personal history of pulmonary embolism; Z79.01 Long term (current) use of anticoagulants; Z59.0 Homelessness
CPT/HCPCS: 71045; 80053; 81001; 83605; 83880; 85025; 87040; 87493; 93306; 96365; 96375; 96376; 99285; G0378; J0690; J2270